=== PATIENT | female | born 1975 | race Caucasian/White ===

== ENCOUNTER 2021-11-05 23:45 | Emergency (ER) | payer SELFPAY ==
[~2021-11-05] VITALS: Ht 170.2 cm; Wt 88.5 kg
--- NOTE | 2021-11-05 23:45 | NUR ---
PT BIB [facility], PREBOOK. TAKEN TO CHAIR
[2021-11-05 23:47] VITALS: BP 155/97
--- NOTE | 2021-11-05 23:59 | NUR ---
Dr. Moon examining patient.
[2021-11-06 00:09] VITALS: BP 155/97
--- NOTE | 2021-11-06 00:10 | NUR ---
PATIENT BIB [facility]. PATIENT EXAMINED BY DR. GIBSON. PATIENT MEDICALLY CLEARED AND RELEASED IN CUSTODY IN STABLE CONDITION. ORIGINAL PRE-BOOK FORM GIVEN TO OFFICER NOHEMI.
== END 2021-11-06 00:10 ==
LOC: MED 23:45
DX: Z02.89 Encounter for other administrative examinations (principal); V89.2XXA Person injured in unspecified motor-vehicle accident, traffic, initial encounter; Y93.89 Activity, other specified; Y92.410 Unspecified street and highway as the place of occurrence of the external cause; Y99.8 Other external cause status
CPT/HCPCS: 99283